=== PATIENT | female | born 1995 | race Two or more races ===

== ENCOUNTER 2024-04-05 15:53 | Outpatient (CLI) | payer OTHER ==
[~2024-04-05 15:53] MED LIST: PRENATAL 19 CH1 EACH PO
== END 2024-04-05 15:54 | disposition home or self-care (01) ==
LOC: PRENATAL 15:53
PROVIDERS: ATTEND Obstetrics & Gynecology Maternal & Fetal Medicine
DX: O35.9XX0 Maternal care for (suspected) fetal abnormality and damage, unspecified, not applicable or unspecified (principal); O35.3XX0 Maternal care for (suspected) damage to fetus from viral disease in mother, not applicable or unspecified; O44.02 Complete placenta previa NOS or without hemorrhage, second trimester; Z3A.19 19 weeks gestation of pregnancy

== ENCOUNTER → 2024-07-05 15:18 | Outpatient (CLI) | payer OTHER | END | disposition home or self-care (01) | LOC: PRENATAL 15:18 | PROVIDERS: ATTEND Obstetrics & Gynecology Maternal & Fetal Medicine | DX: O26.849 Uterine size-date discrepancy, unspecified trimester (principal); O36.8199 Decreased fetal movements, unspecified trimester, other fetus; Z3A.32 32 weeks gestation of pregnancy ==

== ENCOUNTER 2024-08-17 14:15 | Inpatient (IN) | payer OTHER ==
[~2024-08-17] VITALS: Ht 162.6 cm; Wt 3.6 kg
[2024-08-27 06:00] VITALS: BP 128/79
[2024-08-27] MEDS ORDERED: RINGERS SOLUTION,LACTATED 1,000 ML IV SCH (06:00)
[2024-08-27 07:06] LABS: PH,URINE 6.5 (5.0-8.0); URINE APPEARANCE Clear; URINE BILIRRUBIN Negative (NEGATIVE); URINE BLOOD Negative; URINE COLOR Yellow; URINE GLUCOSE Negative (NEGATIVE); URINE KETONE 15 (NEGATIVE); URINE LEUKOCYTE Trace; URINE NITRATE Negative; URINE PROTEIN 30 (NEGATIVE); URINE UROBILINOGEN 0.2 E.U./dl
[2024-08-27 07:08] LABS: URINE BACTERIA 225.5 uL (0.0-1933); URINE EPITHELIAL CELLS 34.9 uL (0.0-38.8); URINE RBC 42.4 uL (0.0-20.8); URINE WBC 18.2 uL (0.0-23.2)
[2024-08-27 07:20] LABS: HEMATOCRIT 35.9 % (36.0-45.00); MEAN CELL VOLUME 86.3 fL (80.00-100.00); MEAN CORPUSCULAR HGB CONC 33.6 g/dl (32.0-36.0); PLATELET COUNT 238 K/uL (150-450); RED BLOOD COUNT 4.16 M/uL (4.00-6.00); RED CELL DISTRIBUTION WIDTH 14.4 % (11.5-14.5)
[2024-08-27 07:21] LABS: URINE CAST 0.45 uL (0.0-1.40)
[2024-08-27 07:23] LABS: URINE YEAST FEW /hpf
[2024-08-27 07:36] VITALS: BP 144/70
[2024-08-27 07:42] LABS: INR 0.94; PARTIAL THROMBOPLASTIN TIME 28.6 SECONDS (22.0-34.0); PROTHROMBIN TIME 10.3 SECONDS (9.0-11.5)
[2024-08-27 07:52] LABS: ALBUMIN 2.8 gm/dL (3.4-5.0); BILIRUBIN TOTAL 0.57 mg/dL (0.3-1.2); CALCIUM 9.8 mg/dL (8.5-10.1); CREATININE SERUM 0.48 mg/dL (0.55-1.02); GFR 156.33; GLOBULINA 3.6 G/DL (2.4-3.5); POTASSIUM 3.95 mEq/L (3.5-5.1); TOTAL PROTEIN 6.4 gm/dL (6.4-8.2)
[2024-08-27] MEDS ORDERED: OXYTOCIN 500 ML IV SCH (08:45)
[2024-08-27 11:11] VITALS: BP 147/79
[2024-08-27] MEDS ORDERED: TERBUTALINE SULFATE 1 MG/ML AMPUL SUBCUTANEO PRN (12:45)
[2024-08-27] MEDS ORDERED: OXYTOCIN 10 UNITS/ML VIAL IV ONE (13:00)
[2024-08-27] MEDS ORDERED: ERYTHROMYCIN BASE OPHT 1GM EACH TUBE OP ONE (13:00)
[2024-08-27] MEDS ORDERED: CEFAZOLIN SODIUM 1,000 MG VIAL IV ONE (13:00)
[2024-08-27] MEDS ORDERED: MORPHINE SULFATE 4 MG/ML CARTRIDGE IV PRN (14:30)
[2024-08-27] MEDS ORDERED: ONDANSETRON HCL 2 MG/ML VIAL IV PRN (14:30)
[2024-08-27] MEDS ORDERED: GABAPENTIN 300 MG CAPSULE PO PRN (14:45)
[2024-08-27] MEDS ORDERED: METOCLOPRAMIDE HCL 5 MG/ML VIAL IV NR (15:15)
[2024-08-27] MEDS ORDERED: OXYTOCIN 1,000 ML IV SCH (15:15)
[2024-08-27] MEDS ORDERED: CEFOXITIN SODIUM 1,000 MG in 0.9 % SODIUM CHLORIDE 50 ML IV SCH (17:00)
[2024-08-27 17:18] VITALS: BP 105/60
[2024-08-27] MEDS ORDERED: SIMETHICONE 125 MG CAPSULE PO SCH (18:00)
[2024-08-27] MEDS ORDERED: KETOROLAC TROMETHAMINE 30 MG VIAL IV SCH (18:00)
[2024-08-27] MEDS ORDERED: SENNOSIDES 1 TAB TABLET PO SCH (21:00)
[2024-08-28 00:29] VITALS: BP 127/84
[2024-08-28 05:09] VITALS: BP 111/73
[2024-08-28] MEDS ORDERED: ACETAMINOPHEN 500 MG GEL..CAP PO SCH (06:00)
[2024-08-28 07:33] LABS: HEMATOCRIT 31.1 % (36.0-45.00); HEMOGLOBIN 10.6 g/dL (12.0-15.00); MEAN CORPUSCULAR HEMOGLOBIN 29.3 pg (27.00-32.0); PLATELET COUNT 182 K/uL (150-450); RED BLOOD COUNT 3.62 M/uL (4.00-6.00); RED CELL DISTRIBUTION WIDTH 14.4 % (11.5-14.5)
[2024-08-28 08:00] VITALS: BP 123/80
[2024-08-28] MEDS ORDERED: IBUprofen 800 MG TABLET PO SCH (09:00)
[2024-08-28 14:50] VITALS: BP 116/80
[2024-08-28 23:19] VITALS: BP 129/87
[2024-08-29 07:47] VITALS: BP 117/76
[2024-08-29] MEDS ORDERED: IBU800 MG PO (10:07)
[2024-08-29] MEDS ORDERED: SURFAK240 M1 PO (10:07)
== END 2024-08-29 13:43 | disposition home or self-care (01) | DRG 788 ==
LOC: LDR 08-27 05:53 → OB/GYN 08-27 15:10 → LDR 08-29 14:15
PROVIDERS: Obstetrics & Gynecology; ADMIT Obstetrics & Gynecology; ATTEND Obstetrics & Gynecology
PROC: 4A1HXCZ Monitoring of Products of Conception, Cardiac Rate, External Approach (ICD-10-PCS; 2024-08-27)
PROC: 10D00Z1 Extraction of Products of Conception, Low, Open Approach (ICD-10-PCS; principal; 2024-08-27 12:00)
DX: O82 Encounter for cesarean delivery without indication (principal); O62.1 Secondary uterine inertia; O64.0XX0 Obstructed labor due to incomplete rotation of fetal head, not applicable or unspecified; Z3A.39 39 weeks gestation of pregnancy; Z37.0 Single live birth; Z20.822 Contact with and (suspected) exposure to COVID-19